=== PATIENT | male | born 1995 | race Caucasian/White ===

== ENCOUNTER 2021-12-12 10:51 | Emergency (ER) | payer BC, SELFPAY ==
--- NOTE | ~2021-12-12 | US_ITS ---
EXAMINATION: US SCROTUM CLINICAL INFORMATION: Left testicular pain. COMPARISON: None TECHNIQUE: A sonogram of the scrotum was performed assessing purcell-scale appearance and color Doppler flow. Spectral Doppler analysis of the arterial and venous flow were performed in the testes bilaterally. FINDINGS: RIGHT: Right testicle measures 4.4 x 2.0 x 2.5 cm, volume 11.5 mL. No focal testicular parenchymal lesions are visualized. Spectral Doppler analysis of the arterial and venous flow is normal in the right testis. Right epididymal head is normal in size. No right hydrocele or varicocele is seen. Right epididymal Doppler flow is normal. LEFT: Left testicle measures 4.4 x 2.1 x 2.7 cm, volume 13.0 mL. No focal testicular parenchymal lesions are visualized. Spectral Doppler analysis of the arterial and venous flow is normal in the left testis. Left epididymal head is normal in size. There is a small left epididymal cyst measuring 0.5 x 0.6 x 0.6 cm. No left hydrocele or varicocele is seen. Left epididymal Doppler flow is normal. US/US scrotum doppler IMPRESSION: Small left epididymal cyst. The testes and the right epididymis is unremarkable. There is no evidence of torsion.
--- NOTE | ~2021-12-12 | US_ITS ---
EXAMINATION: US SCROTUM CLINICAL INFORMATION: Left testicular pain. COMPARISON: None TECHNIQUE: A sonogram of the scrotum was performed assessing purcell-scale appearance and color Doppler flow. Spectral Doppler analysis of the arterial and venous flow were performed in the testes bilaterally. FINDINGS: RIGHT: Right testicle measures 4.4 x 2.0 x 2.5 cm, volume 11.5 mL. No focal testicular parenchymal lesions are visualized. Spectral Doppler analysis of the arterial and venous flow is normal in the right testis. Right epididymal head is normal in size. No right hydrocele or varicocele is seen. Right epididymal Doppler flow is normal. LEFT: Left testicle measures 4.4 x 2.1 x 2.7 cm, volume 13.0 mL. No focal testicular parenchymal lesions are visualized. Spectral Doppler analysis of the arterial and venous flow is normal in the left testis. Left epididymal head is normal in size. There is a small left epididymal cyst measuring 0.5 x 0.6 x 0.6 cm. No left hydrocele or varicocele is seen. Left epididymal Doppler flow is normal. US/US scrotum IMPRESSION: Small left epididymal cyst. The testes and the right epididymis is unremarkable. There is no evidence of torsion.
[2021-12-12 11:05] VITALS: BP 115/74; PULSE 86; RESP 16; TEMP 36.2; O2SAT 98; BMI 31.4
[2021-12-12] MEDS: Ibuprofen 800 MG TABLET PO (11:55)
[2021-12-12 13:08] LABS: Appearance Urine Clear; Color Urine Yellow; Glucose Urine UA Negative (Negative); Leukocyte Esterase Urine Negative (Negative); Nitrite Urine Negative (Negative); PH 6.5 (5.0-9.0); Urine Blood Negative (Negative); Urine Ketones Negative (Negative); Urine Protein Negative (Neg-Trace)
--- NOTE | 2021-12-12 14:08 | ED.MALEGU ---
HPI - Male Genitourinary General Chief complaint: General Medical Stated complaint: Testicle pain Time Seen by Provider: 12/12/21 11:34 Source: patient and family ( Significant other at bedside) Mode of arrival: ambulatory Limitations: no limitations History of Present Illness HPI Narrative: 26-year-old male presenting to the ED with complaints of left testicular pain over the past 3 days worse today. Reports I think my testicle is twisting . Reports he felt like he had this in the past although was never seen. He denies any fevers, chills, nausea/vomiting, abdominal pain, flank pain, suprapubic abdominal pain, back pain, dysuria, hematuria, abnormal penile discharge, thoughts of STD, diarrhea constipation, black or bloody stools or any other symptoms complaints or concerns at this time. MD Complaint: testicle pain Onset (ago): day(s) (3) Duration: constant Location: left testicle Severity: mild Quality: aching ( sensitive upon touch) Relieving factors: none Exacerbating factors: palpation Associated symptoms: Reports denies other symptoms Related Data Sexually active: Yes Previous Rx's Medication Instructions Recorded ibuprofen 800 mg tablet 800 mg PO Q8H PRN pain #14 tabs 12/12/21 Allergies Allergy/AdvReac Type Severity Reaction Status Date / Time doxycline Allergy Intermediate Vomiting Uncoded 12/12/21 11:04 Review of Systems Review of Systems: Constitutional : No Weight loss, No Fever, No Chills, No Night Sweats, No Fatigue, NoMalaise ENT/Mouth: No ear pain, No sore throat, No Difficulty swallowing Cardiovascular : No Chest Pain, No SOB, No Dyspnea on Exertion, No Orthopnea, NoEdema, No Palpitations Respiratory : No Cough, No Sputum, No Wheezing, No Dyspnea Gastrointestinal : No Nausea, No Vomiting, No Diarrhea, + abdominal Pain, No Hematochezia, No Melena Genitourinary : + left testicular pain, No irregular bleeding, No Dysuria, No Urinary Frequency, No Hematuria,No Urinary Incontinence, No Urgency, No Flank Pain Musculoskeletal : No joint pain, No Myalgias, No Joint Swelling Skin : No Skin Lesions, No rash Neuro : No Weakness, No Numbness, No Paresthesias, No Loss of Consciousness, NoDizziness, No Headache Psych : No Social Issues, Heme/Lymph: No Bruising, No Bleeding,No Lymphadenopathy Endocrine : No Polyuria, No Polydipsia, No Temperature Intolerance PATIENT DENIES ANY THOUGHTS OF STDS Yes all other systems are reviewed and are negative [facility] Past Medical History Attestation statement: The following information was validated with the patient. Source: old records reviewed and nursing notes reviewed Social History Social History Advance Directives: No Advance Directives Information Provided: No Physical Exam Vital Signs: Vital Signs: Last Vital Signs Temp 97.2 F 12/12/21 11:05 Pulse 86 12/12/21 11:05 Resp 16 12/12/21 11:05 BP 115/74 12/12/21 11:05 Pulse Ox 98 12/12/21 11:05 O2 Del Method 12/12/21 11:05 BMI result Body Mass Index 31.4 vital signs have been reviewed as normal and appeared to be correct. Blood pressure normal. Heart rate normal. Respiration rate normal. Temperature normal. Oxygen saturation normal. Appearance: Alert. Oriented X3. No acute distress. Head: Normal external exam. Normocephalic. Atraumatic. Eyes: PERRLA. EOMI. Conjunctiva and sclera normal. Eyelids normal. ENT: Pharynx normal. Uvula midline. Moist mucous membranes. Neck: Normal inspection. Neck supple. FROM. No adenopathy. No meningeal signs. CVS: Normal heart rate and rhythm. Heart sound normal. No murmurs noted. Pulses normal throughout. Respiratory: No respiratory distress. Painless inspiration. Breath sounds normal. No wheezes/rales/rhonchi noted. Chest nontender. No accessory muscle usage noted or decreased air movement noted. Abdomen: Soft and nontender. Bowel sounds normal in all 4 quadrants. No distention noted. No organomegaly noted. No visible injury noted. : Chaperoned by KOBE Escalante. Normal external exam. No masses/lumps/ecchymosis/edema/erythema/lacerations/lesions/vesicles/induration noted. No hernia noted. No inguinal lymphadenopathy noted. Normal penis free of discharge. The scrotum is normal. Testicles are both descended bilaterally and appear normal. No hydrocele or scrotal mass/swelling noted. No varicocele. Epididymides normal. although patient reports mild left epididymal pain on palpation. No epididymal pain to the right side of the testicle. No blue dot sign. Back: No CVA tenderness. Full range of motion noted. Skin: Skin warm and dry. Normal skin color. Normal skin turgor. No rashes/lesions/lacerations noted. Extremities: Extremities exhibit normal range of motion. Extremities nontender. Neuro: Oriented X 3. No motor deficit. No sensory deficit. Reflexes normal. Course Course Course Narrative: 26-year-old male presenting to the ED with complaints of left testicular pain over the past 3 days worse today. Reports I think my testicle is twisting . Reports he felt like he had this in the past although was never seen. He Ultrasound negative for testicular torsion revealed left epididymal cyst. UA within normal limits. Patient does not have any thoughts of STDs. Therefore at this time will DC home with symptomatic treatment instructions to follow-up with PCP and to return if any new or worsening symptoms. Patient understands agrees with this plan. [facility] - Male Genitourinary Medical Records Attestation: I reviewed the patient's medical records. Lab Data Attestation: I reviewed the patient's lab results. Labs: Lab Results 12/12/21 Range/Units 12:56 Urine Color Yellow Urine Appearance Clear Urine pH 6.5 (5.0-9.0) Ur Specific [place] 1.020 (1.005-1.025) Urine Protein Negative (Neg-Trace) mg/dL Urine Glucose (UA) Negative (Negative) mg/dL Urine Ketones Negative (Negative) mg/dL Urine Blood Negative (Negative) Urine Nitrite Negative (Negative) Ur Leukocyte Esterase Negative (Negative) Imaging Data Testicular/scrotal ultrasound: Attestation: I personally reviewed and interpreted this imaging study as follows: Radiologist's impression: FINDINGS: RIGHT: Right testicle measures 4.4 x 2.0 x 2.5 cm, volume 11.5 mL. No focal testicular parenchymal lesions are visualized. Spectral Doppler analysis of the arterial and venous flow is normal in the right testis. Right epididymal head is normal in size. No right hydrocele or varicocele is seen. Right epididymal Doppler flow is normal. LEFT: Left testicle measures 4.4 x 2.1 x 2.7 cm, volume 13.0 mL. No focal testicular parenchymal lesions are visualized. Spectral Doppler analysis of the arterial and venous flow is normal in the left testis. Left epididymal head is normal in size. There is a small left epididymal cyst measuring 0.5 x 0.6 x 0.6 cm. No left hydrocele or varicocele is seen. Left epididymal Doppler flow is normal. US/US scrotum IMPRESSION: Small left epididymal cyst. ? The testes and the right epididymis is unremarkable. ? There is no evidence of torsion. Discharge Plan Discharge Clinical Impression: Cyst of epididymis Patient Disposition: Home, Self-Care Instructions: Scrotal Pain (ED) Prescriptions: New ibuprofen 800 mg tablet 800 mg PO Q8H PRN (Reason: pain) Qty: 14 0RF Referrals: Rangel Landaverde MD [Primary Care Provider] - 2 days Interventions: ED Discharge Assessment Last Done: 12/12/21 14:39 Discharge Date/Time: 12/12/21 14:39
[2021-12-12 15:24] LABS: CT PCR NOT DETECTED (Not Detect.); NG PCR NOT DETECTED (Not Detect.)
== END 2021-12-12 14:39 | disposition home or self-care (01) ==
PROVIDERS: Physician Assistant Medical; Emergency Provider Emergency Medicine; PCP Internal Medicine
DX: N45.1 Epididymitis (principal); N50.812 Left testicular pain; Z79.899 Other long term (current) drug therapy
CPT/HCPCS: 76870; 81003; 87491; 87591; 93975; 99283; 99284

== ENCOUNTER 2024-04-15 15:36 | Emergency (ER) | payer OTHER, SELFPAY ==
--- NOTE | ~2024-04-15 | XR_ITS ---
CLINICAL HISTORY: L knee pain 4 view left knee Comparison: None Findings: No fractures or dislocations. No significant arthritic change or erosions. No joint effusion. No radiopaque foreign body. IMPRESSION: 1. No acute findings. This document has been electronically signed by: Caryn George MD on 04/15/2024 16:20:32
--- NOTE | ~2024-04-15 | XR_ITS ---
CLINICAL HISTORY: twisted foot ankle 2 view left ankle Comparison: None Findings: No acute fractures or dislocations. No significant loss of joint space, osteophytes, or erosions. No ankle effusion. No radiopaque foreign body. IMPRESSION: 1. No acute findings. This document has been electronically signed by: Caryn George MD on 04/15/2024 16:19:45
--- NOTE | ~2024-04-15 | XR_ITS ---
CLINICAL HISTORY: twisted foot ankle 3 view left foot Comparison: None Findings: No fractures or dislocations. No significant arthritic change or erosions. No ankle effusion. No radiopaque foreign body. IMPRESSION: 1. No acute findings. This document has been electronically signed by: Caryn George MD on 04/15/2024 16:19:20
[2024-04-15 15:38] VITALS: BP 150/102; PULSE 120; RESP 18; TEMP 37.9; O2SAT 100; BMI 27.6
--- NOTE | 2024-04-15 15:40 | ED.LOWEXIN ---
HPI - Extremity Injury (Lower) General Chief Complaint: Extremity Injury, Lower Stated Complaint: L foot injury Time Seen by Provider: 04/15/24 15:54 Source: patient, RN notes reviewed and old records reviewed Mode of arrival: ambulatory Limitations: no limitations History of Present Illness ED Provider: Nika JENKINS Narrative: Patient is a 28-year-old male presenting to the emergency department with complaint of left ankle and foot pain and swelling which occurred prior to arrival. He states that he was walking down carpeted stairs and there were believes at the bottom causing him to slip and fall. States that when he fell he landed on to his foot which was underneath him. Since that time he has developed pain and swelling to his dorsal foot area. Pain worse with movement. Complains of some tingling to his ankle. MD complaint: foot injury Onset (ago): hour(s) Type of Injury: unknown Place: home Severity: severe Relieving factors: rest Exacerbating factors: weight bearing and movement Context: fall Associated symptoms: swelling Other symptoms: none Treatments prior to arrival: cold therapy Related Data Previous Rx's ?Medication ?Instructions ?Recorded ibuprofen 800 mg tablet 800 mg PO Q8H PRN pain #14 tabs 12/12/21 Allergies Allergy/AdvReac Type Severity Reaction Status Date / Time doxycline Allergy Intermediate Vomiting Uncoded 04/15/24 15:41 Review of Systems Review of Systems: As per HPI Yes all other systems are reviewed and are negative Constitutional: Constitutional: Reports as per HPI [facility] Social History Social History Smoked in Last 30 Days: No Use of substances other than those prescribed or required for medical reasons: Yes Substance Use Type: Marijuana Advance Directives: No Advance Directives Information Provided: No Do you have a plan to hurt others: No Plan Physical Exam Vital Signs: Vital Signs: Last Vital Signs Temp 97.6 F 04/15/24 16:26 Pulse 120 H 04/15/24 15:38 Resp 18 04/15/24 15:38 BP 150/102 H 04/15/24 15:38 Pulse Ox 100 04/15/24 15:38 O2 Del Method Room Air 04/15/24 15:38 BMI result Body Mass Index 27.6 Vital signs have been reviewed and appear to be correct. Blood pressure elevated. Heart rate tachycardic. Respiratory rate normal. Temperature normal. Oxygen saturation normal. Const: General: cooperative, healthy appearing and no acute distress Orientation/consciousness: oriented to person, oriented to place, oriented to time and patient oriented x3 Limitations: no limitations HEENT: Head: Yes normocephalic and Yes atraumatic Ears: external ears normal General nose exam: Normal external nose present Face and sinus: Yes face symmetric Throat: Yes uvula midline Eyes: Pupils: Equal, round and reactive pupils present Neck: Neck: Yes normal visual inspection and Yes supple Resp: Effort & Inspection: normal respiratory effort and able to speak in complete sentences Auscultation: clear to auscultation bilaterally Cardio: Rate: regular rate Rhythm: regular rhythm Heart sounds: S1 normal heart sound present and S2 normal heart sound present GI: Palpation (GI): Soft to palpation and nontender Auscultation: normoactive bowel sounds : General: Yes no CVA tenderness Back/Spine/Pelvis: Back: no CVA tenderness Skin: General skin exam: elasticity normal and turgor normal Neuro: General: oriented to person, oriented to place, oriented to time, patient oriented x3, moves all extremities, no focal motor deficits and CN's II-XI intact bilaterally Cranial nerves: Yes Equal, round and reactive pupils present Cognition (Neuro): normal cognition Extrem: General: Yes full ROM, Yes no pedal edema and Yes no calf tenderness Left lower extremity: ankle Details: normal to inspection, tenderness Location: of the lateral malleolus and normal ROM; no swelling and no ecchymosis and foot Details: normal capillary refill, abnormal to inspection (swelling to dorsal lateral foot), tenderness Location: of the dorsal foot Location: laterally, toes with normal ROM and vascular exam Details: dorsalis pedis pulse present, posterior tibial pulse present and normal capillary refill; no ecchymosis Psych: Mental Status: mental status grossly normal Affect: normal affect Thought process: Normal thought process present Course Course Course Narrative: This is a Rapid Medical Exam performed in triage by Caprice Marti PA-C. Full HPI, ROS and PE to be performed by primary ED provider. 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 +ttp to L knee. NV intact. in wheelchair. low grade fever Plan: XR, viral testing Medications Administered Discontinued Medications Generic Name Dose Route Start Last Admin Trade Name Tienq PRN Reason Stop Dose Admin Oxycodone HCl 5 mg 04/15/24 16:14 04/15/24 16:27 Oxycodone Hcl Immed Release 5 Mg Tablet PO 04/15/24 16:15 5 mg ONCE ONE Administration Medical Decision Making Medical Decision Making [facility] Narrative: Patient is a 28-year-old male presenting to the emergency department with complaint of left ankle and foot pain and swelling which occurred prior to arrival. On exam patient is awake, A+Ox3, VS WNL, afebrile, normal neurological exam without focal deficits, physical exam findings as above. Given reported symptoms and physical exam findings, initial differential includes but is not limited to left foot contusion versus fracture, left ankle strain, sprain, fracture, left knee fracture. Viral serology ordered by triage provider as patient noted to have fever with temporal thermometer. Patient rechecked once in room and found to be afebrile with oral thermometer. X-rays of left knee, ankle and foot notable for no acute fractures. My interpretation is in agreement with the radiologist's interpretation. Patient updated on results and all questions answered. Patient provided with Elbert wrap for foot contusion. Advised Tylenol, ibuprofen, rice. Return precautions discussed. Will refer to ortho for any ongoing symptoms. Patient verbalized understanding of and agreement with plan. Differential Diagnosis Differential Diagnoses: The differential diagnosis associated with the presentation includes As per [facility] Independent Interpretation I performed an independent interpretation of an: Plain X-Ray Interpretation: X-rays of left knee, ankle and foot are without evidence of acute fracture. Radiology Impression Discussion of test interpretation with radiology: I have reviewed the radiologist's reading. Radiologist Impression: 4 view left knee Comparison: None Findings: No fractures or dislocations. No significant arthritic change or erosions. No joint effusion. No radiopaque foreign body. IMPRESSION: 1. No acute findings. Findings: No fractures or dislocations. No significant arthritic change or erosions. No ankle effusion. No radiopaque foreign body. IMPRESSION: 1. No acute findings. Findings: No acute fractures or dislocations. No significant loss of joint space, osteophytes, or erosions. No ankle effusion. No radiopaque foreign body. IMPRESSION: 1. No acute findings. External Record Review External record reviewed: Inpatient record, Office record and Outpatient record Discharge Plan Discharge Clinical Impression: Contusion of foot, left Patient Disposition: Home, Self-Care Instructions: Foot Contusion (ED), R.I.C.E. Treatment (ED) Additional Instructions: You have been evaluated in the emergency department today for foot and ankle pain. Your evaluation did not find evidence of medical conditions requiring emergent intervention at this time. Your x-rays did not show evidence of any fractures. We have provided an ELBERT wrap for you to use while your foot heals. Please rest, ice, and elevate your foot, and resume normal activities as tolerated. We recommend you take 600mg ibuprofen every 6 hours or 650mg Tylenol every 6 hours as needed for pain. If Needed you can alternate these medications as they take 1 medication every 3 hours. For instance at noon take ibuprofen, then at 3:00 p.m. take Tylenol, then at 6:00 p.m. take ibuprofen. Please schedule an appointment for follow-up with your primary care provider this week. Return to the emergency department if you experience worsening pain, numbness, tingling, change of color in your foot/toes, or any other concerning symptoms. Follow-up with orthopedics for any ongoing symptoms. Prescriptions: No Action ibuprofen 800 mg tablet 800 mg PO Q8H PRN (Reason: pain) Qty: 14 0RF Referrals: [facility] [Provider Group] Stand Alone Forms: Work/School Release Print Language: Moroccan
[2024-04-15 16:26] VITALS: TEMP 36.4
[2024-04-15] MEDS: oxyCODONE HCl Immed Release 5 MG TABLET PO (16:27)
[2024-04-15 17:18] VITALS: BP 127/67; PULSE 76; RESP 18; TEMP 37.2; O2SAT 99
== END 2024-04-15 17:19 | disposition home or self-care (01) ==
PROVIDERS: Emergency Provider Emergency Medicine; PCP Internal Medicine
DX: S90.32XA Contusion of left foot, initial encounter (principal); M25.572 Pain in left ankle and joints of left foot; M25.562 Pain in left knee; M79.672 Pain in left foot; W10.9XXA Fall (on) (from) unspecified stairs and steps, initial encounter; Y93.9 Activity, unspecified; Y92.9 Unspecified place or not applicable; Y99.8 Other external cause status
CPT/HCPCS: 73562; 73610; 73630; 99283; 99284

== ENCOUNTER → 2024-04-15 15:42 | Outpatient (BNV) | payer OTHER, SELFPAY | PROVIDERS: Emergency Provider Emergency Medicine; PCP Internal Medicine; Visit Provider Radiology Diagnostic Radiology | DX: M25.562 Pain in left knee (principal); M25.572 Pain in left ankle and joints of left foot; M79.672 Pain in left foot | CPT/HCPCS: 73562; 73610; 73630 ==

== ENCOUNTER 2024-09-09 11:31 | Outpatient (REF) | payer OTHER, SELFPAY ==
--- NOTE | ~2024-09-09 | XR_ITS ---
Exam: 3 view left ankle and left foot TECHNIQUE: AP, lateral, oblique view partially joint, and lower extremity Comparison: April 15, 2024 INDICATION: Sprained FINDINGS: Left ankle: Ankle mortise is congruent. There is no widening of the syndesmosis. The talar dome is intact. Small enthesophyte is present at the Achilles attachment onto calcaneus. There is questionable medial soft tissue swelling. Left foot: Hallux valgus deformity is noted. There is nonspecific circular lucent region in the base of the distal phalanx of the great toe. Joint spaces are preserved. There is no joint diastases or malalignment. No fracture lines are identified. XR/XR foot LT min 3V IMPRESSION: Left ankle demonstrates questionable medial soft tissue swelling. Left foot demonstrates mild hallux valgus deformity. Electronically signed by: Willam Azul MD 09/09/2024 06:18 PM EDT
--- NOTE | ~2024-09-09 | XR_ITS ---
Exam: 3 view left ankle and left foot TECHNIQUE: AP, lateral, oblique view partially joint, and lower extremity Comparison: April 15, 2024 INDICATION: Sprained FINDINGS: Left ankle: Ankle mortise is congruent. There is no widening of the syndesmosis. The talar dome is intact. Small enthesophyte is present at the Achilles attachment onto calcaneus. There is questionable medial soft tissue swelling. Left foot: Hallux valgus deformity is noted. There is nonspecific circular lucent region in the base of the distal phalanx of the great toe. Joint spaces are preserved. There is no joint diastases or malalignment. No fracture lines are identified. XR/XR ankle LT min 3V IMPRESSION: Left ankle demonstrates questionable medial soft tissue swelling. Left foot demonstrates mild hallux valgus deformity. Electronically signed by: Willam Azul MD 09/09/2024 06:18 PM EDT
--- OUTSIDE RECORDS SUMMARY | 2024-09-09 12:26 | XMS_ITS ---
Author Organization Rangel Landaverde MD Address [address] [place] [id number] Care Team Providers Care Vending Route Servicer Name Role Phone Rangel Landaverde Primary Care Provider [phone] REASON FOR VISIT ER Encounters Encounter Location Date Provider Diagnosis Rangel Landaverde MD [address] [facility] [address] [place] [id number] 04/16/2024 Rangel Landaverde Plan Of Treatment Next Appt Details Provider Name:Rangel Montero ier, 10/12/2024 10:00:00 AM, [address] [place] [address], Suite [facility], [place], [place], [phone], Progress Notes * Daniel KNAPPDO B:1995 (28 yo M)Acc No.[id number]:04/16/2024 Patient:?Randy Knapp :1995???Age:28 Y???Sex:Male Address:[address] [place], [address] * true * Date:? Generated for Printi ng/Faxing/eTransmitting on:?09/09/2024 12:25 PM EDT
== END 2024-09-09 11:32 | disposition home or self-care (01) ==
LOC: HO.XRAY 11:31
PROVIDERS: PCP Internal Medicine; Visit Provider Internal Medicine
DX: S92.402A Displaced unspecified fracture of left great toe, initial encounter for closed fracture (principal)
CPT/HCPCS: 73610; 73630

== ENCOUNTER → 2024-09-09 12:00 | Outpatient (BNV) | payer OTHER, SELFPAY | PROVIDERS: PCP Internal Medicine; Visit Provider Radiology Diagnostic Radiology | DX: R22.42 Localized swelling, mass and lump, left lower limb (principal); M20.12 Hallux valgus (acquired), left foot | CPT/HCPCS: 73610; 73630 ==